=== PATIENT | male | born 1990 | race Asian ===

== ENCOUNTER 2025-02-06 10:47 | Outpatient (REF) | payer MEDICAID, SELFPAY ==
--- OUTSIDE RECORDS SUMMARY | 2025-02-05 10:45 | XMS_ITS | Encounter Summary ---
Author Organization [employer] Address [address] [facility] [address] [place] [address] Care Team Providers Care Client Service Representative Name Role Phone Ramos Mary MD Primary Care Prov ider Encounter Details Date Type Department Care Team ([facility] st Contact Info) Description 02/05/2025 10:45 AM EDT Office Visit [facility] PEDS [address], [place] [phone] Ramos Mary MD [address] [place], [place] [phone] Encounter to establish care (Primary Dx); Elevated blood pressure reading Social History Tobacco Use Types Packs/Day Years Used Date Smoking Tobacco: Never Smokeless Tobacco: Never Tobacco Cessation:Counseling Given: Not Answered Alcohol Use Standard Drinks/Week Comments Yes 0 (1 standard drink = 0.6 oz pur e alcohol) 2-3 times ayear, mostly beer Depression Answer Date Recorded Patient Health Questionnaire-9 Score 0 02/05/2025 Patient Health Questionnaire-9 Score 0 02/05/2025 Last PHQ-9: Questionnaire Data Not on file 1 Housing Stability Answer Date Recorded What is your housing situation today? I have vanessa morrison 01/31/[address] you li ve. Do you have problems with any of the following? None of the above 01/31/2025 Food Insecurity Answer Date Recorded Within the past 12 months, y ou worried that your food would run out before you got money to buy more: Never True 01/31/2025 Within the past 12 months,th e food you bought just didn't last and you didn't have enough money to get more: Never True Transportation Answer Date Recorded In the past 12 months, has l ack of transportation kept you from medical appts, meetings, work or from getting things needed for daily living? No 01/31/2025 Utilities Answer Date Recorded In the past 12 months, has t he electric, gas, oil or water company threatened to shut off services in your home? No 01/31/2025 Depression Answer Date Recorded Patient Health Questionnaire-2 Score 0 02/05/2025 Internet Access Answer Date Recorded Internet Access Q1 Yes 01/31/2025 Internet Access Q2 Not on file 01/31/2025 Sex and Gender Information Value Date Recorded Sex Assigned at Male 02/14/2022 10:32 AM EDT Legal Sex Male 10:32 AM EDT Gender Identity Male 02/14/2022 10:32 AM EDT Sexual Orientation Don't know 02/14/2022 10 :32 AM EDT documented as of this encounter Last Filed Vital Signs Vital Sign Reading Time Taken Comments Blood Pressure 144/89 02/05/2025 10:41 AM EDT Pulse 88 02/05/2025 10:41 AM EDT Temperature 37 C (98.6 F) 02/05/2025 10:41 AM EDT Respiratory Rate 20 02/05/2025 10:41 AM EDT Oxygen Saturation - - Inhaled Oxygen Concentration - - Weight 81.8 kg (180 lb 6.4 oz) 02/05/2025 10:41 AM EDT Height 167.6 cm (5' 6 ) 02/05/2025 10:41 AM EDT Body Mass Index 29.12 02/05/2025 10:41 AM EDT documented in this encounter Functional Status * Over the past 2 weeks, how often have you been bothered by any of the following problems? Question Answer Date of Assessment Author Patient Health Questionnaire-2 Score 0 01/16 10:52 AM EDT Jewels Merino MA * Little interest or pleasure in doing things Answer Date of Assessment Author Not at all 02/05/2025 10:52 AM LYNNET Gonsalo Merino [place] * Feeling down, depressed, or hopeless Answer Date of Assessment Author Not at all 02/05/2025 10:52 AM LYNNET Gonsalo Merino MA * Trouble falling or staying asleep, or sleeping too much Answer Date of Assessment Author Not at all 02/05/2025 10:52 AM Gonsalo Arriola MA * Feeling tired or having little energy Answer Date of Assessment Author Not at all 02/05/2025 10:52 AM Gonsalo Arriola MA * Poor appetite or overeating Answer Date of Assessment Author Not at all 02/05/2025 10:52 AM Gonsalo Arriola MA * Feeling bad about yourself - or that you are a failure or have let yourself or your family down Answer Date of Assessment Author Not at all 02/05/2025 10:52 AM Gonsalo Arriola MA * Trouble concentrating on things, such as reading the newspaper or watching television Answer Date of Assessment Author Not at all 02/05/2025 10:52 AM Gonsalo Arriola MA * Moving or speaking so slowly that other people could have noticed? Or the opposite - being so fidgety or restless that you have been moving around a lot more than usual. Answer Date of Assessment Author Not at all 02/05/2025 10:52 AM Gonsalo Arriola MA * Thoughts that you would be better off or hurting yourself in some way Answer Date of Assessment Author Not at all 02/05/2025 10:52 AM Gonsalo Arriola MA * Patient Health Questionnaire-9 Score Answer Date of Assessment Author 0 02/05/2025 10:52 AM Gonsalo Arriola MA documented as of this encounter Progress Notes * Ramos Banegas MD - 02/05/2025 10:45 AM EDT Subjective Patient ID: Damion Pierre is a 34 y.o. male who presents for No chief complaint on file.. HPI Patient was seen on office to establish medical care Review of Systems Constitutional: Negative for chills, fatigue and fever. Respiratory: Negative for cough and shortness of breath. Cardiovascular: Negative for chest pain and palpitations. Objective Physical Exam Constitutional: Appearance: Normal appearance. HENT: Right Ear: Tympanic membrane, ear canal and external ear normal. There is no impacted cerumen. Left Ear: Tympanic membrane, ear canal and external ear normal. There is no impacted cerumen. Cardiovascular: Rate and Rhythm: Normal rate and regular rhythm. Heart sounds: No murmur heard. Pulmonary: Effort: Pulmonary effort is normal. No respiratory distress. Breath sounds: No stridor. No wheezing or rhonchi. Abdominal: General: Abdomen is flat. There is no distension. Palpations: There is no mass. Tenderness: There is no abdominal tenderness. There is no guarding or rebound. Hernia: No hernia is present. Musculoskeletal: General: No swelling or tenderness. Normal range of motion. Cervical back: Normal range of motion. No rigidity or tenderness. Lymphadenopathy: Cervical: No cervical adenopathy. Skin: General: Skin is warm. Coloration: Skin is not jaundiced or pale. Neurological: General: No focal deficit present. Mental Status: He is alert and oriented to person, place, and time. Psychiatric: Mood and Affect: Mood normal. Behavior: Behavior normal. Assessment/Plan Problem List Items Addressed This Visit Encounter to establish care - Primary ER visit past year:- Hospitalization:- Pmhx:- Pshx:- All:- Meds:- with 1 4 year boy Relevant Orders CBC auto differential Comprehensive Metabolic Panel Lipid Panel, Standard TSH W/Reflex to FT4 Hemoglobin A1c HIV-1/2 Antigen and Antibodies, Fourth Generation, with Reflexes Hepatitis C Antibody with Reflex to HCV, RNA, Quantitative, Real-Time PCR Elevated blood pressure reading Will send a blood pressure monitor and follow up in 1 month, lifestyle modification discussed documented in this encounter Miscellaneous Notes * Assessment & Plan Note - Ramos Banegas MD - 02/05/2025 11:00 AM EDTAssociated Problem(s): Elevated blood pressure reading Will send a blood pressure monitor and follow up in 1 month, lifestyle modification discussed * Assessment & Plan Note - Ramos Banegas MD - 02/05/2025 10:55 AM EDTAssociated Problem(s): Encounter to establish care ER visit past year:- Hospitalization:- Pmhx:- Pshx:- All:- Meds:- with 1 4 year boy documented in this encounter Plan of Treatment Scheduled Orders Name Type Priority Associated Diagnoses Orde r Schedule CBC auto differential Lab Routine Encounter to establish care Expected: 02/05/2025 (Approximate), Expires: 02/05/2026 Comprehensive Metabolic Panel Lab Routine Encounter to establish care Expected: 02/05/2025 (Approximate), Expires: 02/05/2026 Lipid Panel, Standard Lab Routine Encounter to establish care Expected: 02/05/2025 (Approximate), Expires: 02/05/2026 TSH W/Reflex to FT4 Lab Routine Encounter to establish care Expected: 02/05/2025 (Approximate), Expires: 02/05/2026 Hemoglobin A1c Lab Routine Encounter to establish care Expected: 02/05/2025 (Approximate), Expires: 02/05/2026 HIV-1/2 Antigen and Antibodies, Fourth Generation, with Reflexes Lab Routine Encounter to establish care Expected: 02/05/2025 (Approximate), Expires: 02/05/2026 Hepatitis C Antibody with Reflex to HCV, RNA, Quantitative, Real-Time PCR Lab Routine Encounter to establish care Expected: 02/05/2025, Expires: 02/05/2026 documented as of this encounter Visit Diagnoses Diagnosis Encounter to establish care- Primary Elevated blood pressure reading Elevated blood pressure reading without diagnosis of hypertension documented in this encounter Additional Health Concerns Assessment Noted Time PHQ-9 Depression Total Score: 0 02/06/20 10:52 AM EDT documented as of this encounter Care Teams Client Service Representative Relationship Specialty Start Date End Date Ramos Mary MD [address] [place] [id number] PCP - General Internal Medicine 02/05/25 documented as of this encounter
--- OUTSIDE RECORDS SUMMARY | 2025-02-06 13:13 | XMS_ITS | Clinical Summary ---
Author Organization [employer] Address [address] [facility] [address] [place] [address] Care Team Providers Care Professional Fighter Name Role Phone Ramos Mary MD Primary Care Prov ider Allergies No known active allergies Medications Blood Pressure kit 1 kit Once per day. 1 kit 02/05/2025 Active Active Problems Problem Noted Date Diagnosed Date Encounter to establish care 02/05/2025 Assessment & Plan (02/05/2025 10:55 AM EDT): ER visit past year:- Hospitalization:- Pmhx:- Pshx:- All:- Meds:- with 1 4 year boy Elevated blood pressure reading 02/05/2025 Assessment & Plan (02/05/2025 11:00 AM EDT): Will send a blood pressure monitor and follow up in 1 month, lifestyle modification discussed Encounters Date Type Department Care Team Description 02/05/2025 10:45 AM EDT Office Visit [facility] PEDS [address] [place] [address] Ramos Mary MD Encounter to establish care (Primary Dx); Elevated blood pressure reading 02/05/2025 Travel 01/31/2025 Patient Outreach [facility] [address] [place] [address] Mesfin Myers MD Pre-visit Planning (SDOH screening negative and Tobacco screening negative) from Last 3 Months Family History Medical History Relation Name Comments No Known Problems Father Cancer Maternal Grandmother No Known Problems Mother Relation Name Status Comments Father Maternal Grandmother Mother Social History Tobacco Use Types Packs/Day Years [...] Don't know 02/14/2022 10 :32 AM EDT Last Filed Vital Signs Vital Sign Reading [...] Mass Index 29.12 02/05/2025 10:41 AM EDT Plan of Treatment Health Maintenance Due Date Last Done Comments HIV Screening 1992 Family Planning (PISQ) 06/21/2007 HPV Vaccines (1 - Male 3-dos e series) 06/21/2007 Hepatitis C Screening 2010 Hepatitis B Vaccines (2 of 3 - 19+ 3-dose series) 01/23/2017 12/26/2016 COVID-19 Vaccine (4 - 2024-2 6 season) 2024 04/21/2021, 09/04/2020, 08/14/2020 Influenza Vaccine (#1) 2024 8, 12/16/2016 Alcohol/Substance Use Screening 02/05/2026 02/05/2025 Depression Screening 02/05/2026 02/05/2025, 02/05/2025 Disability Screening 02/05/2026 02/05/2025 SDOH Screening 02/05/2026 02/05/2025 Tobacco Screening 02/05/2026 02/05/2025 DTaP/Tdap/Td Vaccines (2 - T d or Tdap) 12/16/2026 12/16/2016 Zoster Vaccines (1 of 2) 2042 RSV Patients and Patients Aged 60 years or older (1 - 1-dose 75+ series) 06/21/2067 HIB Vaccines Aged Out No longer eligi ble based on patient's age to complete this topic Hepatitis A Vaccines Aged Out No long er eligible based on patient's age to complete this topic IPV Vaccines Aged Out No longer eligi ble based on patient's age to complete this topic Meningococcal B Vaccine Aged Out No l onger eligible based on patient's age to complete this topic Meningococcal Vaccine Aged Out No leslye estela eligible based on patient's age to complete this topic Pneumococcal Vaccine: Pediatrics (0 to 5 Years) and At-Risk Patients (6 to 49) Years Aged Out No longer eligible b ased on patient's age to complete this topic RSV under 20 months Aged Out No longe r eligible based on patient's age to complete this topic Rotavirus Vaccines Aged Out No longer eligible based on patient's age to complete this topic Insurance [facility] FULL Care Teams Professional Fighter Relationship Specialty Start Date End Date Ramos Mary MD [address] [place] [phone] PCP - General Internal Medicine 02/05/25
--- OUTSIDE RECORDS SUMMARY | 2025-02-06 13:13 | XMS_ITS | Clinical Summary ---
Author Organization [facility] Address [address] [place] [address] Care Team Providers Care Community Affairs Director Name Role Phone Unavailable Primary Care Provider Unavailabl e Social History Tobacco Use Types Packs/Day Years Used Date Smoking Tobacco: Never Assessed Sex and Gender Information Value Date Recorded Sex Assigned at Not on file Gender Identity Not on file Sexual Orientation Not on file Job Start Date Occupation Industry Not on file Not on file Not on file Plan of Treatment Health Maintenance Due Date Last Done Comments Hepatitis B Vaccines (1 of 3 - 3-dose series) 1992 Hepatitis C Screening 1992 COVID-19 Vaccine (#1) 1992 Depression Screening 2004 Preventative Health Evaluation 2010 DTap / Tdap / Td (1 - Tdap) 06/21/2011 Influenza Vaccine (#1) 2024 Pneumococcal Vaccine Aged Out No long er eligible based on patient's age to complete this topic RSV Ped < 20 months Aged Out No longe r eligible based on patient's age to complete this topic
--- OUTSIDE RECORDS SUMMARY | 2025-02-06 13:13 | XMS_ITS | Clinical Summary ---
Author Organization [facility] Address [address] [place] [address] Care Team Providers Care Distributor Advertising Material Name Role Phone Unavailable Primary Care Provider Unavailabl e Social History Tobacco Use Types Packs/Day Years Used Date Smoking Tobacco: Never Assessed Sex and Gender Information Value Date Recorded Sex Assigned at Not on file Legal Sex Male 2:43 AM EST Gender Identity Not on file Sexual Orientation Not on file Plan of Treatment Health Maintenance Due Date Last Done Comments DTaP,Tdap,and Td Vaccines (1 - Tdap) 06/21/2011 Hepatitis B Vaccines (1 of 3 - 19+ 3-dose series) 06/21/2011 HPV Vaccines (1 - 3-dose SCD M series) 06/21/2019 HIV Screening 11/14/2023 Hepatitis C Screening 11/14/2023 Social Influencers of Health Screening 11/14/2023 Depression Screening 04/17/2024 COVID-19 Vaccine ( - 2023-2 5 season) 2024 Influenza Vaccine (#1) 2024 RSV Immunization Adult Patie nts (1 - 1-dose 75+ series) 06/21/2067 HIB Vaccines Aged Out No longer eligi ble based on patient's age to complete this topic Hepatitis A Vaccines Aged Out No long er eligible based on patient's age to complete this topic IPV Vaccines Aged Out No longer eligi ble based on patient's age to complete this topic MMR Vaccines Aged Out No longer eligi ble based on patient's age to complete this topic Meningococcal ACWY Vaccine Aged Out N o longer eligible based on patient's age to complete this topic Meningococcal B Vaccine Aged Out No l onger eligible based on patient's age to complete this topic Pneumococcal Vaccine: Pediat rics (0 to 5 Years) and At-Risk Patients (6 to 49 Years) Aged Out No longer eligible b ased on patient's age to complete this topic RSV Immunization Patients Un danuta 20 months Aged Out No longer eligible b ased on patient's age to complete this topic Varicella Vaccines Aged Out No longer eligible based on patient's age to complete this topic
--- OUTSIDE RECORDS SUMMARY | 2025-02-06 13:13 | XMS_ITS | Encounter Summary ---
Author Organization [employer] Address [address] [facility] [address] [place] [address] Care Team Providers Care Molder Apprentice Name Role Phone Ramos Mary MD Primary Care Prov ider Encounter Details Date Type Department Care Team (Latest Contact Info) Description 02/05/2025 Travel Social History Tobacco Use Types Packs/Day Years Used Date Smoking Tobacco: Never Smokeless Tobacco: Never Alcohol Use Standard Drinks/Week Comments Yes 0 [...] AM EDT documented as of this encounter Functional Status * Over the past 2 weeks, how often have you been bothered by any of the following problems? Question Answer Date of Assessment Author Patient Health Questionnaire-2 Score 0 01/16 10:52 AM Jewels Arriola MA * Little interest or pleasure in doing things Answer Date of Assessment Author Not at all 02/05/2025 10:52 AM Gonsalo Arriola MA * Feeling down, depressed, or hopeless Answer Date of Assessment Author Not at all 02/05/2025 10:52 AM Gonsalo Arriola MA * Trouble falling or staying asleep, [...] Author Not at all 02/05/2025 10:52 AM EDT Gonsalo Merino MA * Patient Health Questionnaire-9 Score Answer Date of Assessment Author 0 02/05/2025 10:52 AM EDT Gonsalo Merino MA documented as of this encounter Plan of Treatment Not on file documented as of this encounter Visit Diagnoses Not on filedocumented in this encounter Additional Health Concerns Assessment Noted Time PHQ-9 Depression Total Score: 0 02/06/20 10:52 AM EDT documented as of this encounter Care Teams Molder Apprentice Relationship Specialty Start Date End Date Ramos Mary MD [address] [place] [id number] PCP - General Internal Medicine 02/05/25 documented as of this encounter
[2025-02-06 14:35] LABS: MANUAL DIFF FLAG NO
[2025-02-06 14:52] LABS: Hemoglobin A1C 149.4332 umol/L; Total Hemoglobin (HGBA1C) 3761.7161 umol/L
[2025-02-06 14:56] LABS: Hematocrit 45.5 % (42.0-52.0); Hemoglobin 14.9 g/dl (14.0-18.0); Imm Gran Abs Auto 0.02 X10*3/uL (0.00-0.03); Imm Gran Pct Auto 0.3 % (0.0-0.4); Lymphocytes Absolute Auto 2.2 X10*3/uL (1.2-4.9); Mean Corpuscular HGB Conc 32.7 g/dl (31.0-36.0); Mean Corpuscular Hemoglobin 27.7 pg (27.0-33.0); Mean Corpuscular Volume 84.7 fL (80.0-98.0); NRBC Abs Auto 0.000 X10*3/uL (0.0-0.012); NRBC Pct Auto 0.0 /100WBC (0.0-0.2); Platelet Count 386 X10*3/uL (160-400); Red Blood Count 5.37 X10*6/uL (4.60-5.80); White Blood Count 7.0 X10*3/uL (4.8-10.8)
[2025-02-06 14:57] LABS: Alanine Aminotransferase 61 U/L (0-40); Albumin Level 5.0 g/dL (3.5-5.0); Alkaline Phosphatase 106 U/L (39-117); Anion Gap 14 (12-20); Aspartate Amino Transferase 49 U/L (5-37); Blood Urea Nitrogen 8 mg/dL (9-16); Calcium 10.0 mg/dL (8.4-10.2); Carbon Dioxide 27 mmol/L (22-29); Chloride 104 mmol/L (96-108); Cholesterol 224 mg/dL (<200); Estimated Glomerular Filt Rate > 60; HDL Cholesterol 52 mg/dL (>40); Potassium 4.3 mmol/L (3.3-5.1); Sodium 141 mmol/L (135-145); Total Protein 8.3 g/dL (6.5-8.0); Triglycerides 136 mg/dL (<150)
[2025-02-07 04:38] LABS: HIV Num 1 0.06 S/CO (0.00-0.99); ~HepC Num1 0.09 S/CO (0.00-0.79); ~Hepatitis C Antibody Nonreactive (Nonreactive)
== END 2025-02-06 10:48 | disposition home or self-care (01) ==
LOC: HO.CHCLDS 10:47
PROVIDERS: Visit Provider Internal Medicine
DX: Z11.4 Encounter for screening for human immunodeficiency virus [HIV] (principal); Z11.59 Encounter for screening for other viral diseases; Z76.89 Persons encountering health services in other specified circumstances
CPT/HCPCS: 36415; 80053; 80061; 83036; 84443; 85025; 86803; 87389